=== PATIENT | female | born 1985 | race Caucasian/White ===

== ENCOUNTER 2017-06-11 00:11 | Emergency (ER) | payer BC ==
[2017-06-11] MEDS ORDERED: Sodium Chloride 0.9% 1,000 ML IV ONE (00:30)
[2017-06-11] MEDS ORDERED: Ondansetron 4 MG/2 ML SDV IVPUSH ONE (00:30)
--- NOTE | 2017-06-11 00:32 | EDM.PDOC ---
ED HPI GENERAL MEDICAL PROBLEM - General Chief Complaint: Gastrointestinal Problem Stated Complaint: STOMACH PAINS Time Seen by Provider: 06/11/17 00:29 - History of Present Illness INITIAL COMMENTS - FREE TEXT/NARRATIVE: HISTORY AND PHYSICAL: History of present illness: Patient 32-year-old female presents with a concern of nausea and vomiting and possible dehydration she states she's had issues with alcohol abuse in the past and is concerned about possible diabetes. There is no trauma no vaginal discharge or irregular bleeding urinary symptoms or other complaints Review of systems: As per history of present illness and below otherwise all systems reviewed and negative. Past medical history: As per history of present illness and as reviewed below otherwise noncontributory. Surgical history: As per history of present illness and as reviewed below otherwise noncontributory. Social history: No reported history of drug or alcohol abuse. Family history: As per history of present illness and as reviewed below otherwise noncontributory. Physical exam: HEENT: Atraumatic, normocephalic, pupils reactive, negative for conjunctival pallor or scleral icterus, mucous membranes dry, throat clear, neck supple, nontender, trachea midline. Lungs: Clear to auscultation, breath sounds equal bilaterally, chest nontender. Heart: S1S2, regular, negative for clicks, rubs, or JVD. Abdomen: Soft, nondistended, nontender. Negative for masses or hepatosplenomegaly. Negative for costovertebral tenderness. Pelvis: Stable nontender. Genitourinary: Deferred. Rectal: Deferred. Extremities: Atraumatic, negative for cords or calf pain. Neurovascular unremarkable. Neuro: Awake, alert, oriented. Cranial nerves II through XII unremarkable. Cerebellum unremarkable. Motor and sensory unremarkable throughout. Exam nonfocal. Diagnostics: CBC CMP amylase lipase UA hCG urine drug screen Therapeutics: Normal saline 1 L bolus Zofran 4 mg IV Impression: #1 vomiting with dehydration #2 history of alcohol abuse Definitive disposition and diagnosis as appropriate pending reevaluation and review of above. - Related Data Allergies Allergy/AdvReac Type Severity Reaction Status Date / Time aspirin Allergy Dizziness Verified 06/11/17 00:20 Home Meds: Home Meds . [No Known Home Meds] 06/11/17 [History] ED ROS GENERAL - Review of Systems Review Of Systems: ROS reveals no pertinent complaints other than HPI. ED EXAM, GENERAL - Physical Exam Exam: See Below (See dictation) Course - Vital Signs Last Recorded V/S: Last Vital Signs Temp 36.6 C 06/11/17 01:01 Pulse 87 06/11/17 01:01 Resp 18 06/11/17 01:01 BP 111/76 06/11/17 01:01 Pulse Ox 99 06/11/17 01:01 - Orders/Labs/Meds Orders: Active Orders 24 hr Category Date Time Status Abdomen Pelvis w Cont [CT] Stat Exams 06/11/17 02:17 Taken Chest 2V [CR] Stat Exams 06/11/17 02:18 Taken CULTURE BLOOD [BC] Stat Lab 06/11/17 02:57 Received CULTURE BLOOD [BC] Stat Lab 06/11/17 03:03 Received Blood Culture x2 Reflex Set [OM.PC] Stat Oth 06/11/17 02:17 Ordered Labs: Laboratory Tests 06/11/17 06/11/17 06/11/17 Range/Units 00:50 00:50 00:54 WBC 27.03 H (4.0-11.0) K/uL RBC 4.62 (4.30-5.90) M/uL Hgb 13.9 (12.0-16.0) g/dL Hct 40.2 (36.0-46.0) % MCV 87.0 (80.0-98.0) fL MCH 30.1 (27.0-32.0) pg MCHC 34.6 (31.0-37.0) g/dL RDW Std Deviation 41.7 (28.0-62.0) fl RDW Coeff of Ruddy 13 (11.0-15.0) % Plt Count 252 (150-400) K/uL MPV 9.60 (7.40-12.00) fL Add Manual Diff YES Neutrophils % (Manual) 95 H (48.0-80.0) % Band Neutrophils % 1 % Lymphocytes % (Manual) 4 L (16.0-40.0) % Nucleated RBC % 0.0 /100WBC Absolute Seg Neuts 25.7 Band Neutrophils # 0.3 Lymphocytes # (Manual) 1.1 Nucleated RBCs # 0 K/uL INR (0.86-1.11) Sodium (136-146) mmol/L Potassium (3.5-5.1) mmol/L Chloride (98-110) mmol/L Carbon Dioxide (21-31) mmol/L BUN (6.0-23.0) mg/dL Creatinine (0.6-1.5) mg/dL Est Cr Clr Drug Dosing mL/min Estimated GFR (MDRD) ml/min Glucose (60-110) mg/dL Calcium (8.8-10.8) mg/dL Total Bilirubin (0.1-1.5) mg/dL AST (5-40) IU/L ALT (8-54) IU/L Alkaline Phosphatase (40-150) Total Protein (6.0-8.0) g/dL Albumin (3.5-5.0) g/dL Globulin (2.0-3.5) g/dL Albumin/Globulin Ratio (1.3-2.8) Amylase (10-90) U/L Lipase (7-80) U/L HCG, Qual (NEG) Urine Color YELLOW Urine Appearance CLEAR Urine pH 6.0 (5.0-8.0) Ur Specific Sherwood >= 1.030 (1.001-1.035) Urine Protein TRACE (NEGATIVE) mg/dL Urine Glucose (UA) NEGATIVE (NEGATIVE) mg/dL Urine Ketones >=80 (NEGATIVE) mg/dL Urine Occult Blood TRACE-LYSED (NEGATIVE) Urine Nitrite NEGATIVE (NEGATIVE) Urine Bilirubin SMALL H (NEGATIVE) Urine Ictotest NEGATIVE Urine Urobilinogen 0.2 (<2.0) EU/dL Ur Leukocyte Esterase NEGATIVE (NEGATIVE) Urine RBC 0-1 (0-2/HPF) Urine WBC 0-2 (0-5/HPF) Ur Epithelial Cells FEW (NONE-FEW) Urine Bacteria FEW (NEGATIVE) Urine Mucus FEW (NONE-MOD) Urine Opiates Screen NEGATIVE (NEGATIVE) Ur Oxycodone Screen NEGATIVE (NEGATIVE) Urine Methadone Screen NEGATIVE (NEGATIVE) Ur Barbiturates Screen NEGATIVE (NEGATIVE) Ur Phencyclidine Scrn NEGATIVE (NEGATIVE) Ur Amphetamine Screen NEGATIVE (NEGATIVE) U Methamphetamines Scrn NEGATIVE (NEGATIVE) U Benzodiazepines Scrn NEGATIVE (NEGATIVE) U Cocaine Metab Screen NEGATIVE (NEGATIVE) U Marijuana (THC) Screen NEGATIVE (NEGATIVE) Ethyl Alcohol mg/dL 06/11/17 06/11/17 06/11/17 Range/Units 00:54 00:54 00:54 WBC (4.0-11.0) K/uL RBC (4.30-5.90) M/uL Hgb (12.0-16.0) g/dL Hct (36.0-46.0) % MCV (80.0-98.0) fL MCH (27.0-32.0) pg MCHC (31.0-37.0) g/dL RDW Std Deviation (28.0-62.0) fl RDW Coeff of Ruddy (11.0-15.0) % Plt Count (150-400) K/uL MPV (7.40-12.00) fL Add Manual Diff Neutrophils % (Manual) (48.0-80.0) % Band Neutrophils % % Lymphocytes % (Manual) (16.0-40.0) % Nucleated RBC % /100WBC Absolute Seg Neuts Band Neutrophils # Lymphocytes # (Manual) Nucleated RBCs # K/uL INR 1.02 (0.86-1.11) Sodium 146 (136-146) mmol/L Potassium 4.2 (3.5-5.1) mmol/L Chloride 107 (98-110) mmol/L Carbon Dioxide 17 L (21-31) mmol/L BUN 26 H (6.0-23.0) mg/dL Creatinine 1.1 (0.6-1.5) mg/dL Est Cr Clr Drug Dosing 65.11 mL/min Estimated GFR (MDRD) 57.2 ml/min Glucose 147 H (60-110) mg/dL Calcium 10.1 (8.8-10.8) mg/dL Total Bilirubin 1.2 (0.1-1.5) mg/dL AST 55 H (5-40) IU/L ALT 30 (8-54) IU/L Alkaline Phosphatase 67 (40-150) Total Protein 8.3 H (6.0-8.0) g/dL Albumin 5.0 (3.5-5.0) g/dL Globulin 3.3 (2.0-3.5) g/dL Albumin/Globulin Ratio 1.5 (1.3-2.8) Amylase 52 (10-90) U/L Lipase 23 (7-80) U/L HCG, Qual NEGATIVE (NEG) Urine Color Urine Appearance Urine pH (5.0-8.0) Ur Specific Sherwood (1.001-1.035) Urine Protein (NEGATIVE) mg/dL Urine Glucose (UA) (NEGATIVE) mg/dL Urine Ketones (NEGATIVE) mg/dL Urine Occult Blood (NEGATIVE) Urine Nitrite (NEGATIVE) Urine Bilirubin (NEGATIVE) Urine Ictotest Urine Urobilinogen (<2.0) EU/dL Ur Leukocyte Esterase (NEGATIVE) Urine RBC (0-2/HPF) Urine WBC (0-5/HPF) Ur Epithelial Cells (NONE-FEW) Urine Bacteria (NEGATIVE) Urine Mucus (NONE-MOD) Urine Opiates Screen (NEGATIVE) Ur Oxycodone Screen (NEGATIVE) Urine Methadone Screen (NEGATIVE) Ur Barbiturates Screen (NEGATIVE) Ur Phencyclidine Scrn (NEGATIVE) Ur Amphetamine Screen (NEGATIVE) U Methamphetamines Scrn (NEGATIVE) U Benzodiazepines Scrn (NEGATIVE) U Cocaine Metab Screen (NEGATIVE) U Marijuana (THC) Screen (NEGATIVE) Ethyl Alcohol < 10.0 mg/dL Meds: Medications Discontinued Medications Generic Name Dose Route Start Last Admin Trade Name Freq PRN Reason Stop Dose Admin Sodium Chloride 1,000 mls @ 999 mls/hr 06/11/17 00:30 06/11/17 01:04 Normal Saline IV 06/11/17 01:30 999 mls/hr STAT ONE Administration Iopamidol 65 ml 06/11/17 02:56 06/11/17 03:02 Isovue Multipack-370 (76%) IVPUSH 06/11/17 02:57 65 ml ONETIME STA Administration Ondansetron HCl 4 mg 06/11/17 00:30 06/11/17 01:04 Zofran IVPUSH 06/11/17 00:31 4 mg ONETIME ONE Administration Departure - Departure Time of Disposition: 03:46 Disposition: Home, Self-Care 01 Condition: Good Clinical Impression: Alcohol abuse, Vomiting - Discharge Information Referrals: PCP,None [Primary Care Provider] - Forms: ED Department Discharge Additional Instructions: The following information is given to patients seen in the emergency department who are being discharged to home. This information is to outline your options for follow-up care. We provide all patients seen in our emergency department with a follow-up referral. The need for follow-up, as well as the timing and circumstances, are variable depending upon the specifics of your emergency department visit. If you don't have a primary care physician on staff, we will provide you with a referral. We always advise you to contact your personal physician following an emergency department visit to inform them of the circumstance of the visit and for follow-up with them and/or the need for any referrals to a consulting specialist. The emergency department will also refer you to a specialist when appropriate. This referral assures that you have the opportunity for followup care with a specialist. All of these measure are taken in an effort to provide you with optimal care, which includes your followup. Under all circumstances we always encourage you to contact your private physician who remains a resource for coordinating your care. When calling for followup care, please make the office aware that this follow-up is from your recent emergency room visit. If for any reason you are refused follow-up, please contact the [facility] emergency department at and asked to speak to the emergency department charge nurse. Follow-up primary medical doctor wanted today's return as needed as discussed - My Orders Last 24 Hours: My Active Orders 06/11/17 02:17 Abdomen Pelvis w Cont [CT] Stat Blood Culture x2 Reflex Set [OM.PC] Stat 06/11/17 02:18 Chest 2V [CR] Stat 06/11/17 02:57 CULTURE BLOOD [BC] Stat 06/11/17 03:03 CULTURE BLOOD [BC] Stat - Assessment/Plan Last 24 Hours: My Active Orders 06/11/17 02:17 Abdomen Pelvis w Cont [CT] Stat Blood Culture x2 Reflex Set [OM.PC] Stat 06/11/17 02:18 Chest 2V [CR] Stat 06/11/17 02:57 CULTURE BLOOD [BC] Stat 06/11/17 03:03 CULTURE BLOOD [BC] Stat
[2017-06-11 01:20] LABS: CHLORIDE,CL 107 mmol/L (98-110); SODIUM,NA 146 mmol/L (136-146)
[2017-06-11] MEDS ORDERED: Iopamidol 755 MG/ML 500 ML Multipack Bottle IVPUSH STA (02:56)
[2017-06-11 04:08] VITALS: BP 120/67
--- NOTE | 2017-06-11 15:09 | CR ---
EXAM DATE: 06/11/17 PATIENT'S AGE: 32 Patient: LADAN DELGADILLO Facility: [place], [place] Site . Site : 1985 Study: XRay Chest [id number]/28/2017 2:47:10 AM Ordering Physician: Rachel Noyola Final Report: INDICATION: SOB. CHEST PAIN. TECHNIQUE: Chest 2 views. COMPARISON: None. FINDINGS: No pneumothorax or pleural effusion. Lungs are clear. Cardiac and mediastinal contours are within normal limits. Upper abdomen and osseous structures as imaged show no acute abnormality. IMPRESSION: No acute cardiopulmonary disease. Dictated by: Maximus Frank MD @ 06/11/2017 02:51:03 (Electronic Signature) Report Signed by Proxy. [facility]
--- NOTE | 2017-06-11 15:28 | CT ---
EXAM DATE: 06/11/17 PATIENT'S AGE: 32 Patient: LADAN DELGADILLO Facility: [place], [place] Site . Site : 1985 Study: CT Abdomen/Pelvis W CONT [id number]/28/2017 2:49:38 AM Ordering Physician: Rachel Noyola Final Report: INDICATION: Back pain. Abdominal pain. Vomiting. Kidney pain. Patient states alcohol abuse. TECHNIQUE: CT abdomen and pelvis acquired with 65 mL of Isovue 370 IV contrast. COMPARISON: None. FINDINGS: Lower chest: Unremarkable. Liver: Fatty change. Spleen: Unremarkable. Pancreas: Unremarkable. Gallbladder and bile ducts: Unremarkable. Kidneys: Unremarkable. Adrenal glands: Unremarkable. GI tract: No evidence of obstruction or acute appendicitis. Equivocal thickening of the ascending colon. Findings could also be related to bowel collapse. Fecal loading of the distal colon. No free intraperitoneal gas. Trace pelvic free fluid. Vascular structures: Unremarkable. Lymph nodes: Unremarkable. Pelvic Organs: Unremarkable. Bones: No acute abnormality. IMPRESSION: Equivocal thickening versus collapse of the ascending colon. A mild nonspecific colitis could be considered in the appropriate clinical setting. No evidence of obstruction or acute appendicitis. Trace pelvic free fluid may be physiologic. Fatty change of the liver. Dictated by Maximus Frank MD @ 06/11/2017 2:58:57 AM Dictated by: Maximus Frank MD @ 06/11/2017 02:59:26 (Electronic Signature) Report Signed by Proxy. [facility]
== END 2017-06-11 04:05 | disposition home or self-care (01) ==
LOC: MW.ED 00:11
DX: E86.0 Dehydration (principal); F10.10 Alcohol abuse, uncomplicated; R11.2 Nausea with vomiting, unspecified; Z88.6 Allergy status to analgesic agent
CPT/HCPCS: 71020; 74177; 80053; 80305; 81001; 82150; 83690; 84703; 85025; 85610; 87040; 96361; 96374; 99284; G0480; J2405; J7040; Q9967; 99283